=== PATIENT | male | born 1965 | race Caucasian/White ===

== ENCOUNTER → 2016-11-29 | Outpatient (CLI) | payer BC, OTHER ==
--- NOTE | 2016-11-29 21:08 | DIAGNOSTIC IMAGING REPORT ---
MRI OF THE LUMBAR SPINE WITHOUT CONTRAST CLINICAL HISTORY: Lumbar pain. Right thigh numbness and left foot pain. COMPARISON STUDY: No previous studies for comparison. TECHNIQUE: Utilizing a 1.5 Nava magnet and dedicated coil, multiplanar, multiecho imaging of the lumbar spine was performed without IV contrast. FINDINGS: For purposes of numbering on this exam, the L5-S1 disc space is assigned to axial image 21 of 30. There is a transitional vertebra at the lumbosacral junction which is designated as S1 on this exam. This may be partially lumbarized. There is a small disc space at the S1-S2 level. Alignment of lumbar spine is anatomic. Vertebral body heights are maintained. There is no intracanalicular mass or fluid collection. L1-2: The central canal and neural foramen are patent. There is minimal disc bulge. L2-3: There is mild facet arthrosis and ligamentous hypertrophy. The central canal and neural foramen are patent. L3-4: There is mild facet arthrosis and ligamentous hypertrophy. The central canal is patent. There is minimal narrowing of the neural foramen. L4-5: There is moderate facet arthrosis. There is minimal disc bulge. The central canal are patent. There is minimal narrowing of the neural foramen. L5-S1: There is a central annular tear with tiny central disc protrusion. There is mild facet arthrosis. The central canal is patent. There is mild to moderate narrowing of both neural foramen. IMPRESSION: 1. Mild multilevel degenerative disc disease and facet arthritis of the lumbar spine. No central canal stenosis. Mild to moderate bilateral neural foraminal stenosis at L5-S1. 2. Transitional vertebra at the lumbosacral junction which is designated as S1 on this exam. Please see above numbering scheme of the lumbar spine. Electronically signed by: Hakan Choudhary M.D. 11/29/2016 9:06 PM Dictated Date/Time: 11/29/2016 5:10 PM
== END | disposition home or self-care (01) ==
LOC: C.MRI 15:09
PROVIDERS: ATTEND Orthopaedic Surgery Orthopaedic Surgery of the Spine
DX: M54.5 Low back pain (principal)

== ENCOUNTER 2025-07-15 14:57 | Inpatient (IN) ==
--- NOTE | 2025-07-15 15:31 | Emergency Department Note ---
ED Provider Note History of Present Illness Chief Complaint: Shortness of Breath/Dyspnea Stated Complaint: PNEUMONIA, SOB Time Seen by Provider: 07/15/25 15:15 59-year-old male who presents to the emergency department with his mother (who also provides history) for evaluation of progressively worsening shortness of breath with exertion and productive cough. The patient reports that he was seen in our emergency department a few weeks ago with a diagnosis of pneumonia. He was provided a prescription for a Z-Khanh with improvement of symptoms. The patient reports that he was out chopping wood over the weekend and felt great. On Monday, he reported feeling somewhat short of breath. By yesterday, he reports that he could not walk more than 10-15 steps without stopping because of shortness of breath. He reports that his symptoms worsened overnight and this morning. He was seen by his PCP, and referred to the emergency department for further workup. The patient denies any prior history of pulmonary issues. 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 The patient denies any leia chest pain, nausea or diaphoresis. He currently denies any additional pain other than pain between the shoulder blades. Home Medications Medication Instructions Recorded Confirmed Type chlorthalidone 25 mg tablet 12.5 mg PO QAM 11/09/20 07/15/25 History simvastatin 20 mg tablet 20 mg PO Q OTHER DAY 11/09/20 07/15/25 History valsartan 320 mg tablet 320 mg PO QAM 11/09/20 07/15/25 History levothyroxine 125 mcg tablet 125 mcg PO DAILYBB 06/29/25 07/15/25 History aspirin 81 mg tablet,delayed 81 mg PO QAM 07/15/25 07/15/25 History release carvedilol 12.5 mg tablet 12.5 mg PO BID 07/15/25 07/15/25 History Allergies Allergy/AdvReac Type Severity Reaction Status Date / Time No Known Allergies Allergy Unverified 07/15/25 18:55 Past Med/Surg History Problem List (Updated 07/15/25 @ 17:15 by Jerome Medley) History of pneumonia (Acute) Right ventricular hypertrophy (Acute) Bilateral pulmonary embolism (Acute) COVID-19 (Acute) Medical History (Updated 07/15/25 @ 17:15 by Jerome Medley) Hypertension Surgical History (Updated 07/15/25 @ 15:29 by Jerome Medley) No significant past surgical history Social History (Updated 07/15/25 @ 15:29 by Jerome Medley) Smoking Status: Never smoker Hx Alcohol Use: Yes Alcohol type: beer Hx Substance Use: No Preferred Language: [place] [employer] Required: No Beliefs That Will Affect Care: None marital status: Current Living Situation: Spouse current occupational status: employed Feels Safe at Home: Yes Safety Concerns: Feels Safe At This Time Physical Exam Vital Signs Vital Signs - 24 hr 07/15/25 15:11 07/15/25 15:32 07/15/25 15:49 Temperature 36.6 C Temperature Source Temporal Artery Scan Pulse Rate 100 H Pulse Rate [Apical] Respiratory Rate 20 Respiratory Effort / Characteristics Non-Labored Spontaneous Spontaneous SOB on Exertion Respiratory Depth Normal Respiratory Pattern Regular Blood Pressure 132/89 Blood Pressure [Right Arm] Blood Pressure Mean 103 Blood Pressure Mean [Right Arm] Blood Pressure Position Semi-fowlers Pulse Oximetry 96 94 Oxygen Delivery Method Room Air Room Air Room Air Sepsis Recent Fever Within 48 Hours No Sepsis New/Unexplained Change in Mental Status N/A Sepsis Action Taken by Nursing No Action Required 07/15/25 15:49 07/15/25 15:49 07/15/25 16:41 Temperature Temperature Source Pulse Rate 97 H 93 H Pulse Rate [Apical] 97 H Respiratory Rate 20 20 Respiratory Effort / Characteristics Spontaneous Respiratory Depth Respiratory Pattern Blood Pressure Blood Pressure [Right Arm] 126/105 H Blood Pressure Mean Blood Pressure Mean [Right Arm] 112 Blood Pressure Position Pulse Oximetry 94 94 Oxygen Delivery Method Room Air Room Air Sepsis Recent Fever Within 48 Hours Sepsis New/Unexplained Change in Mental Status Sepsis Action Taken by Nursing 07/15/25 17:00 Temperature Temperature Source Pulse Rate Pulse Rate [Apical] 95 H Respiratory Rate 20 Respiratory Effort / Characteristics Non-Labored Spontaneous Respiratory Depth Respiratory Pattern Blood Pressure Blood Pressure [Right Arm] 116/88 Blood Pressure Mean Blood Pressure Mean [Right Arm] 97 Blood Pressure Position Pulse Oximetry 94 Oxygen Delivery Method Room Air Sepsis Recent Fever Within 48 Hours Sepsis New/Unexplained Change in Mental Status Sepsis Action Taken by Nursing CONSTITUTIONAL: Morbidly obese male who appears in mild discomfort. He is able to speak in full sentences. HEENT: No scleral icterus or conjunctival injection/pallor. NECK: Full active range of motion without discomfort. No JVD or carotid bruits appreciated. RESPIRATORY: Clear to auscultation bilaterally with no wheezing, crackles, rhonchi or stridor. CARDIOVASCULAR: Regular rate and rhythm with no murmurs, rubs or gallops. GASTROINTESTINAL: Bowel sounds present in all quadrants. Abdomen is protuberant but soft and nontender to palpation. No bruits on auscultation. MUSCULOSKELETAL: Full range of motion of all joints without discomfort. INTEGUMENTARY: No rash or other significant dermatologic conditions noted. HEMATOLOGIC: No ecchymosis or petechiae. PSYCHIATRIC: Positive affect. NEUROLOGIC: No focal neurologic deficits noted. Course Course Patient history and physical exam were performed. Nursing notes were reviewed. Vital signs were reviewed from triage, showing a heart rate of 100, however heart rate was 96 bpm on my examination. An ECG was also performed prior to my exam, showing a sinus tachycardia of 104 bpm with occasional PVCs, and Mezvn-Iemikcmwx-Oolbo pattern (with prior history of the same). IV access was established, and labs were ordered and drawn. I-STAT labs were ordered with a normal creatinine. Further review of labs shows a bump to troponin and BNP, otherwise remaining labs were grossly normal. Chest CT angiography was performed, showing moderate amount of bilateral pulmonary emboli with right heart strain. The case was discussed with Dr. Dwyer, ED attending physician, who recommended administering aspirin, initiating weight-based IV heparin with bolus, and hospitalist consultation. Heparin was ordered. Findings were also discussed with the patient, who agreed with admission. I then discussed the case with our Case director of primary care, as well as [facility] Please see their dictation for further treatment and final disposition. Administered Medications Heparin Sodium/Dextrose (Heparin 40584 Unit/500 Ml D5w) 25,000 units in 500 mls @ 36 mls/hr IV .[id number] [facility]; Protocol Stop: 08/14/25 17:29 Last Admin: 07/15/25 17:50 Dose: 1,800 units/hr, 36 mls/hr Documented By: INNA Co-signed By: STEPHEN Discontinued Medications Aspirin (Aspirin 81 Mg Chew) 324 mg PO NOW STA Stop: 07/15/25 16:33 Last Admin: 07/15/25 16:41 Dose: 324 mg Documented By: INNA Heparin Sodium (Porcine) (Heparin Sod (Porcine) 1000 Unit/Ml) 1 units IV NOW ONE Stop: 07/15/25 17:18 Last Admin: 07/15/25 17:48 Dose: 6,500 units Documented By: INNA Co-signed By: STEPHEN Heparin Sodium/Dextrose (Heparin Iv Adult Wt-Based Standard W/ Initial Bolus Protocol) 1 each IV NOW STA; Protocol Stop: 07/15/25 17:02 Last Admin: 07/15/25 17:54 Dose: 1 each Documented By: INNA Ioversol (Optiray 320 125ml) 117 ml IV ONCE ONE Stop: 07/15/25 16:36 Last Admin: 07/15/25 16:35 Dose: 117 ml Documented By: ANNE MARIE Medical Decision Making Medical Records Attestation: I reviewed the patient's medical records. Home Medications was personally reviewed by me Laboratory Data Attestation: I reviewed the patient's lab results. 07/15/25 20:55 07/15/25 20:55 Lab Results 07/15/25 07/15/25 07/15/25 Range/Units 15:40 15:41 15:44 WBC 9.30 (4.8-10.8) K/ul RBC 4.82 (4.70-6.10) M/uL Hgb 14.5 (14.0-18.0) g/dl POC Hgb 15.0 (14.0-18.0) g/dl Hct 43.5 (42.0-52.0) % POC Hct 44 (42-52) % MCV 90.2 (80.0-100.0) fL MCH 30.1 (25.0-34.0) pg MCHC 33.3 (32.0-36.0) g/dL RDW Std Deviation 44.3 (36.4-46.3) fL RDW Coeff of Traci 13.4 (11.5-14.5) % Plt Count 287 (130-400) K/uL MPV 10.2 (9.4-12.4) fL Immature Gran % (Auto) 0.5 % Neut % (Auto) 65.4 % Lymph % (Auto) 23.8 % [place] % (Auto) 6.7 % Eos % (Auto) 2.4 % Baso % (Auto) 1.2 % Neut # (Auto) 6.09 (1.40-6.50) K/uL Lymph # (Auto) 2.21 (1.20-3.40) K/uL [place] # (Auto) 0.62 H (0.11-0.59) K/uL Eos # (Auto) 0.22 (0.00-0.50) K/uL Baso # (Auto) 0.11 (0.00-0.20) K/uL Immature Gran # (Auto) 0.05 (0.01-0.20) K/uL PT 11.4 (9.0-12.0) Seconds INR 1.1 (0.9-1.1) APTT 24 (21-31) Seconds PTT Ratio 0.9 POC Sodium 141 (135-144) mmol/L Sodium 138 (136-145) mmol/L POC Potassium 3.5 (3.3-5.0) mmol/L Potassium 3.5 (3.5-5.1) mmol/L POC Chloride 104 (101-112) mmol/L Chloride 105 (98-107) mmol/L Carbon Dioxide 23 (21-32) mmol/L POC Total CO2 20 L (24-31) mmol/L Anion Gap 10 (3-11) POC Anion Gap 22.0 (16-25) mmol/L POC BUN 15 (7-18) mg/dl BUN 16 (6-23) mg/dl Creatinine 0.86 (0.6-1.4) mg/dl POC Creatinine 0.8 (0.6-1.3) mg/dl Est Cr Clr Drug Dosing 131.5 ml/min eGFR 99.74 BUN/Creatinine Ratio 18.6 (10-20) Glucose 150 H (70-99(Fasting)) mg/dl POC Glucose (other) 152 H (70-99) mg/dl Calcium 9.4 (8.6-10.3) mg/dl POC Ioniz Calcium Carson 1.16 (1.12-1.32) mmol/l Magnesium 1.9 (1.7-2.4) mg/dl Total Bilirubin 0.5 (0.2-1.0) mg/dl AST 13 (13-39) U/L ALT 20 (7-52) U/L Alkaline Phosphatase 90 (34-104) U/L Troponin I High Sens 178.1 H* (0-20) pg/ml B-Natriuretic Peptide 297 H (0-100) pg/ml Total Protein 7.5 (6.0-8.3) gm/dl Albumin 3.9 (3.4-5.0) gm/dl Globulin 3.6 (2.5-4.0) gm/dl Albumin/Globulin Ratio 1.1 (0.9-2) TSH 2.044 (0.300-4.500) uIu/ml Adenovirus (PCR) Not Detected (NotDetected) B. pertussis DNA (PCR) Not Detected (NotDetected) B.parapertussis DNA PCR Not Detected (NotDetected) C. pneumoniae DNA (PCR) Not Detected (NotDetected) Coronavirus OC43 (PCR) Not Detected (NotDetected) Coronavirus HKU1 (PCR) Not Detected (NotDetected) Coronavirus 229E (PCR) Not Detected (NotDetected) SARS-CoV-2 (PCR) Not Detected (NotDetected) Coronavirus NL63 (PCR) Not Detected (NotDetected) Human Metapneumovir PCR Not Detected (NotDetected) Influenza Type A (PCR) Not Detected (NotDetected) Influenza Type B (PCR) Not Detected (NotDetected) M. pneumoniae (PCR) Not Detected (NotDetected) Parainfluenza 1 (PCR) Not Detected (NotDetected) Parainfluenza 2 (PCR) Not Detected (NotDetected) Parainfluenza 3 (PCR) Not Detected (NotDetected) Parainfluenza 4 (PCR) Not Detected (NotDetected) RSV (PCR) Not Detected (NotDetected) Entero/Rhino (PCR) Not Detected (NotDetected) 07/15/25 Range/Units 17:25 WBC (4.8-10.8) K/ul RBC (4.70-6.10) M/uL Hgb (14.0-18.0) g/dl POC Hgb (14.0-18.0) g/dl Hct (42.0-52.0) % POC Hct (42-52) % MCV (80.0-100.0) fL MCH (25.0-34.0) pg MCHC (32.0-36.0) g/dL RDW Std Deviation (36.4-46.3) fL RDW Coeff of Traci (11.5-14.5) % Plt Count (130-400) K/uL MPV (9.4-12.4) fL Immature Gran % (Auto) % Neut % (Auto) % Lymph % (Auto) % [place] % (Auto) % Eos % (Auto) % Baso % (Auto) % Neut # (Auto) (1.40-6.50) K/uL Lymph # (Auto) (1.20-3.40) K/uL [place] # (Auto) (0.11-0.59) K/uL Eos # (Auto) (0.00-0.50) K/uL Baso # (Auto) (0.00-0.20) K/uL Immature Gran # (Auto) (0.01-0.20) K/uL PT (9.0-12.0) Seconds INR (0.9-1.1) APTT (21-31) Seconds PTT Ratio POC Sodium (135-144) mmol/L Sodium (136-145) mmol/L POC Potassium (3.3-5.0) mmol/L Potassium (3.5-5.1) mmol/L POC Chloride (101-112) mmol/L Chloride (98-107) mmol/L Carbon Dioxide (21-32) mmol/L POC Total CO2 (24-31) mmol/L Anion Gap (3-11) POC Anion Gap (16-25) mmol/L POC BUN (7-18) mg/dl BUN (6-23) mg/dl Creatinine (0.6-1.4) mg/dl POC Creatinine (0.6-1.3) mg/dl Est Cr Clr Drug Dosing ml/min eGFR BUN/Creatinine Ratio (10-20) Glucose (70-99(Fasting)) mg/dl POC Glucose (other) (70-99) mg/dl Calcium (8.6-10.3) mg/dl POC Ioniz Calcium Carson (1.12-1.32) mmol/l Magnesium (1.7-2.4) mg/dl Total Bilirubin (0.2-1.0) mg/dl AST (13-39) U/L ALT (7-52) U/L Alkaline Phosphatase (34-104) U/L Troponin I High Sens 185.3 H* (0-20) pg/ml B-Natriuretic Peptide (0-100) pg/ml Total Protein (6.0-8.3) gm/dl Albumin (3.4-5.0) gm/dl Globulin (2.5-4.0) gm/dl Albumin/Globulin Ratio (0.9-2) TSH (0.300-4.500) uIu/ml Adenovirus (PCR) (NotDetected) B. pertussis DNA (PCR) (NotDetected) B.parapertussis DNA PCR (NotDetected) C. pneumoniae DNA (PCR) (NotDetected) Coronavirus OC43 (PCR) (NotDetected) Coronavirus HKU1 (PCR) (NotDetected) Coronavirus 229E (PCR) (NotDetected) SARS-CoV-2 (PCR) (NotDetected) Coronavirus NL63 (PCR) (NotDetected) Human Metapneumovir PCR (NotDetected) Influenza Type A (PCR) (NotDetected) Influenza Type B (PCR) (NotDetected) M. pneumoniae (PCR) (NotDetected) Parainfluenza 1 (PCR) (NotDetected) Parainfluenza 2 (PCR) (NotDetected) Parainfluenza 3 (PCR) (NotDetected) Parainfluenza 4 (PCR) (NotDetected) RSV (PCR) (NotDetected) Entero/Rhino (PCR) (NotDetected) Imaging Data Attestation: I personally reviewed and interpreted this imaging study as follows: My Impression: My interpretation of chest CT angiography shows bilateral pulmonary emboli with right heart strain. No additional pleural effusions or pneumothorax appreciated. Radiologist report was also reviewed with concurrence. I was also contacted by radiologist regarding CT findings. Radiologist's Impression: Chest CTA 07/15/25 15:24 Clinical history: Dyspnea on exertion Technique: Axial computed tomography images were obtained of the chest after the administration of intravenous contrast according to the CT angiogram protocol Comparison is made to the prior CT dated 06/29/2025 Findings: There is new pulmonary embolism in the distal aspect of the right pulmonary artery and within multiple lobar, segmental, and subsegmental pulmonary artery branches bilaterally There are unchanged 2-3 mm right upper lobe and right upper lobe nodules. There is an unchanged 3 minimal lingular nodule. There is an unchanged 6 mm right upper lobe nodule. There is subsegmental atelectasis in both lower lobes. There is no pleural effusion or pneumothorax. There is no sign of pulmonary fibrosis or other diffuse interstitial process. No endobronchial lesion is seen There is no mediastinal, hilar, or axillary adenopathy. The thoracic aorta appears unremarkable with no sign of aneurysm or dissection. There is no pericardial effusion. There is right ventricular dilatation There is fatty infiltration of the liver. No fracture is seen. No focal osseous lesion is evident Impression: 1. Moderate amount of pulmonary embolism bilaterally 2. Right ventricular dilatation, concerning for right heart strain secondary to the pulmonary embolism 3. Unchanged pulmonary nodules, likely benign but indeterminate in nature. A follow-up chest CT is recommended in 6 months to ensure continued stability 4. Fatty infiltration of the liver ACT 112: Positive. There are findings on this exam that require communication between the performing entity and the patient following Patient Test Result Information Act ([place] ACT 112) guidelines. Electronically signed by Sanjeev Marrero 07-15-2025 4:58 PM ECG Data Attestation: I personally reviewed and interpreted this ECG as follows: Indication: + SOB/dyspnea Rate (beats per minute): 104 Rhythm: + normal sinus ECG Intervals/blocks: + Normal QRS, + Normal QT and + Normal [place] ECG Remer: + Normal ECG ST segments: + Normal ST segments and + T-wave inversions (Lead I, aVL) ECG Findings: + PVCs Comparison ECG Date: from (06/29/2025) Change: no significant change Additional Comments: Tjuku-Rkhzjrpyj-Zxmdx pattern noted MDM Narrative Cardiac monitoring: An order was placed for continuous cardiac monitoring. The monitor shows a rate of 104 bpm with a sinus tachycardic rhythm. console assembler history was reviewed throughout the evaluation, and no dysrhythmias were noted. See ED Course section for further details of today's visit. The patient presents with complaint of progressively worsening dyspnea on exertion for the past 4 days. Patient does have significant history of left lower lobe pneumonia 2 weeks ago that was treated with azithromycin, with the patient reporting symptomatic and clinical improvement. The patient did have notable physical activity 5 days ago cutting of firewood without any issues. CT angiography today does show evidence for moderate bilateral pulmonary emboli with right heart strain. Patient does have a bumped troponin and BNP. The patient was treated with weight-based IV heparin with bolus, as well as a full size aspirin. The case was discussed with my attending physician, case management, radiologist and [facility] and further management. Impression Bilateral pulmonary embolism, Right ventricular hypertrophy, History of pneumonia Critical Care Time Critical Care Time: Yes Total Critical Care Time: 40 I have personally spent 40 minutes of critical care time in the direct management of this patient. This includes bedside care, interpretation of diagnostic studies, and testing, discussion with consultants, patient, and family members, and other required patient management activities. This 40 minutes is in excess of all separately billable procedures. Patient did require IV heparin for bilateral pulmonary emboli causing right heart strain. Discharge Plan Visit Data Chief Complaint: Shortness of Breath/Dyspnea Stated Complaint: PNEUMONIA, SOB ED Provider: Aayush Dwyer ED Midlevel Provider: Jerome Medley Discharge Problem: Bilateral pulmonary embolism, Right ventricular hypertrophy, History of pneumonia Patient Disposition: Admitted As Inpatient Condition: Serious Discharge Instructions Interventions: ED Discharge Assessment Last Done: 07/15/25 20:22 ED DC CONDITION Conditon at Discharge Condition at Discharge: Fair
[2025-07-15 15:56] LABS: Hematocrit (blood only) 43.5 % (42.0-52.0); Hemoglobin 14.5 g/dl (14.0-18.0); Immature Granulocytes # (auto) 0.05 K/uL (0.01-0.20); Immature Granulocytes % (auto) 0.5 %; Mean Corpuscular Hemoglobin 30.1 pg (25.0-34.0); Mean Corpuscular Volume 90.2 fL (80.0-100.0); Platelet Count 287 K/uL (130-400); RDW Standard Deviation 44.3 fL (36.4-46.3); Red Blood Count 4.82 M/uL (4.70-6.10); White Blood Count 9.30 K/ul (4.8-10.8)
[2025-07-15 16:12] LABS: Alanine Aminotransferase 20.0 U/L (7-52); Albumin Globulin Ratio 1.1 (0.9-2); Alkaline Phosphatase 90.0 U/L (34-104); Anion Gap 10.0 (3-11); Bilirubin,Total 0.5 mg/dl (0.2-1.0); Blood Urea Nitrogen 16.0 mg/dl (6-23); Calcium 9.4 mg/dl (8.6-10.3); Carbon Dioxide 23.0 mmol/L (21-32); Chloride 105.0 mmol/L (98-107); Creatinine Clr Calc Pharmacy 131.5 ml/min; Globulin 3.6 gm/dl (2.5-4.0); Glucose 150.0 mg/dl (70-99(Fasting)); Magnesium 1.9 mg/dl (1.7-2.4); Potassium 3.5 mmol/L (3.5-5.1); Sodium 138.0 mmol/L (136-145); Total Protein 7.5 gm/dl (6.0-8.3)
[2025-07-15 16:27] LABS: INR 1.1 (0.9-1.1); Partial Thromboplastin Time 24 Seconds (21-31); Prothrombin Time 11.4 Seconds (9.0-12.0)
[2025-07-15 16:28] LABS: Thyroid Stimulating Hormone 2.044 uIu/ml (0.300-4.500)
[2025-07-15] MEDS: OPTIRAY 320 125ml IV ONE (16:35)
[2025-07-15] MEDS: ASPIRIN 81 MG CHEW PO STA (16:41)
[2025-07-15 16:44] LABS: Chlamydia pneumoniae PCR Not Detected (NotDetected); Coronavirus 229E PCR Not Detected (NotDetected); Coronavirus CoV-2 (COVID19)PCR Not Detected (NotDetected); Coronavirus HKU1 PCR Not Detected (NotDetected); Coronavirus NL63 PCR Not Detected (NotDetected); Coronavirus OC43PCR Not Detected (NotDetected); Human Metapneumovirus PCR Not Detected (NotDetected); Parainfluenza Virus 1 PCR Not Detected (NotDetected); Parainfluenza Virus 2 PCR Not Detected (NotDetected); Parainfluenza Virus 3 PCR Not Detected (NotDetected); Parainfluenza Virus 4 PCR Not Detected (NotDetected); Respiratory Syncytial VirusPCR Not Detected (NotDetected); Rhinovirus/Enterovirus PCR Not Detected (NotDetected)
--- NOTE | 2025-07-15 16:58 | CT Scan Report ---
Clinical history: Dyspnea on exertion Technique: Axial computed tomography images were obtained of the chest after the administration of intravenous contrast according to the CT angiogram protocol Comparison is made to the prior CT dated 06/29/2025 Findings: There is new pulmonary embolism in the distal aspect of the right pulmonary artery and within multiple lobar, segmental, and subsegmental pulmonary artery branches bilaterally There are unchanged 2-3 mm right upper lobe and right upper lobe nodules. There is an unchanged 3 minimal lingular nodule. There is an unchanged 6 mm right upper lobe nodule. There is subsegmental atelectasis in both lower lobes. There is no pleural effusion or pneumothorax. There is no sign of pulmonary fibrosis or other diffuse interstitial process. No endobronchial lesion is seen There is no mediastinal, hilar, or axillary adenopathy. The thoracic aorta appears unremarkable with no sign of aneurysm or dissection. There is no pericardial effusion. There is right ventricular dilatation There is fatty infiltration of the liver. No fracture is seen. No focal osseous lesion is evident Impression: 1. Moderate amount of pulmonary embolism bilaterally 2. Right ventricular dilatation, concerning for right heart strain secondary to the pulmonary embolism 3. Unchanged pulmonary nodules, likely benign but indeterminate in nature. A follow-up chest CT is recommended in 6 months to ensure continued stability 4. Fatty infiltration of the liver ACT 112: Positive. There are findings on this exam that require communication between the performing entity and the patient following Patient Test Result Information Act ([place] ACT 112) guidelines. Electronically signed by Sanjeev Marrero 07-15-2025 4:58 PM
[2025-07-15] MEDS: HEPARIN SOD (PORCINE) 1000 UNIT/ML IV ONE (17:48)
[2025-07-15] MEDS: HEPARIN 25000 UNIT/500 ML D5W 25,000 UNITS/500 ML BAG IV SCH (17:50)
--- NOTE | 2025-07-15 17:53 | History & Physical Report ---
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 He felt he returned back to baseline after being treated for the PNA however since this past Monday developed gradually progressive exertional dyspnea. Worked up in ED with impression of bilateral PE and likely right heart strain with D sign and enlarged pulmonary artery notable on CTA on my review of the scan. No saddle emboli noted. VSS and no other notable findings on initial evaluation. Bilateral PE likely provoked from recent hospitalization (inflammatory state, limited mobility, body habitus) Telemetry Heparin drip and transition to oral anticoagulation tomorrow anticipate 3 to 6 month course Trend troponins Echocardiogram Lower extremity duplex Outpatient hypercoagulable workup once treatment completed Hypertension Home medications Hypothyroidism Synthroid Hyperlipidemia Statin DVT prophylaxis Full code Disposition admission to telemetry History of Present Illness Chief Complaint: PE Primary Care Provider: Jono Haji 59M hypertension obesity WPW family history blood clots (uncle), 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 He felt he returned back to baseline after being treated for the PNA however since this past Monday developed gradually progressive exertional dyspnea. Worked up in ED with impression of bilateral PE and likely right heart strain with D sign and enlarged pulmonary artery notable on CTA on my review of the scan. No saddle emboli noted. VSS and no other notable findings on initial evaluation. No pleuritic or other chest pain, orthopnea, hemoptysis, f/c, URI symptoms nausea lightheadedness diaphoresis or any other symptoms. at bedside. No previous history VTE, malignancy, steroid / testosterone therapy, prolonged immobilization, smoking or other known risk factors Awaiting completion of home med rec Allergies Allergy/AdvReac Type Severity Reaction Status Date / Time No Known Allergies Allergy Unverified 11/09/20 11:00 Home Medications Medication Instructions Recorded Confirmed Type carvedilol 6.25 mg tablet 6.25 mg PO QAM 11/09/20 06/29/25 History chlorthalidone 25 mg tablet 12.5 mg PO QAM 11/09/20 06/29/25 History simvastatin 20 mg tablet 20 mg PO Q OTHER DAY 11/09/20 06/29/25 History valsartan 320 mg tablet 320 mg PO QAM 11/09/20 06/29/25 History levothyroxine 125 mcg tablet 125 mcg PO DAILYBB 06/29/25 06/29/25 History amoxicillin 875 mg-potassium 1 tab PO BID #14 tabs 06/30/25 Rx clavulanate 125 mg tablet azithromycin 250 mg tablet 250 mg PO UD #4 tabs 06/30/25 Rx Past Med/Surg History Problem List (Updated 07/15/25 @ 17:15 by Jerome Medley) History of pneumonia (Acute) Right ventricular hypertrophy (Acute) Bilateral pulmonary embolism (Acute) COVID-19 (Acute) Medical History (Updated 07/15/25 @ 17:15 by Jerome Medley) Hypertension Surgical History (Updated 07/15/25 @ 15:29 by Jerome Medley) No significant past surgical history Social History (Updated 07/15/25 @ 15:29 by Jerome Medley) Smoking Status: Never smoker Preferred Language: Icelandic marital status: Current Living Situation: Spouse current occupational status: employed Feels Safe at Home: Yes Review of Systems Review of Systems: negative except as in HPI Results & Data Results & Data Vital Signs (Past 12 Hours) Vital Signs Temp Pulse Pulse Resp BP BP Pulse Ox 07/15/25 17:00 95 H 20 116/88 94 07/15/25 16:41 93 H 07/15/25 15:49 97 H 20 94 07/15/25 15:49 97 H 20 126/105 H 94 07/15/25 15:49 94 07/15/25 15:32 07/15/25 15:11 36.6 C 100 H 20 132/89 96 O2 Del Method 07/15/25 17:00 Room Air 07/15/25 16:41 07/15/25 15:49 Room Air 07/15/25 15:49 Room Air 07/15/25 15:49 Room Air 07/15/25 15:32 Room Air 07/15/25 15:11 Room Air PG Care Time/CCT Total # of Minutes Spent Total Time Spent with Patient: Total time spent is greater than 50% in coordination of care (as documented) at patient's floor/unit and/or counseling patient: Coding Level of Care Code 06462 INT INP/OBS CARE 2/55MIN Diagnoses History of pneumonia Z87.01 Bilateral pulmonary embolism I26.99 Right ventricular hypertrophy I51.7
[2025-07-15] MEDS: Heparin IV Adult Wt-Based Standard w/ INITIAL Bolus Protocol IV STA (17:54)
[2025-07-15] MEDS ORDERED: POLYETHYLENE (MIRALAX) 17 GM PACK PO PRN (20:38)
[2025-07-15] MEDS ORDERED: MoRPHine SULFATE 2 MG/ML CARP IV PRN (20:38)
[2025-07-15] MEDS ORDERED: MAGNESIUM HYDROXIDE SUSP 30 ML UDC PO PRN (20:38)
[2025-07-15] MEDS ORDERED: ONDANSETRON INJ 2 MG/ML 2 ML VIAL IV PRN (20:38)
[2025-07-15] MEDS ORDERED: ACETAMINOPHEN 325 MG TAB PO PRN (20:38)
--- NOTE | 2025-07-15 20:46 | Ultrasound Report ---
Exam(s): US VENOUS BILATERAL LOWER EXTREMITIES EXAM: US Duplex Bilateral Lower Extremities Veins CLINICAL HISTORY: PE. TECHNIQUE: Real-time duplex ultrasound scan of the bilateral lower extremity veins integrating B-mode two-dimensional vascular structure, Doppler spectral analysis, color flow Doppler imaging and compression. COMPARISON: No relevant prior studies available. FINDINGS: Right deep veins: Partially occlusive thrombus noted in the right peroneal vein. There is no proximal/central extension into the right popliteal vein, the right femoral or common femoral veins. Right superficial veins: No thrombus in the saphenofemoral junction. Left deep veins: No DVT in the left common femoral, femoral, proximal deep femoral or popliteal veins. The veins demonstrate normal color flow, are normally compressible, with normal phasic flow and/or augmentation response. The interrogated calf veins are patent. Left superficial veins: No thrombus in the saphenofemoral junction. Soft tissues: No acute findings. No popliteal cyst. IMPRESSION: 1. Partially occlusive thrombus noted in the right peroneal vein. There is no proximal/central extension into the right popliteal vein, the right femoral or common femoral veins. 2. No evidence for deep vein thrombosis involving the left lower extremity. Electronically signed by: Chad Nolen MD 07/15/25 20:45 PM
[2025-07-15 20:51] VITALS: RESP 18
[2025-07-15 21:10] LABS: Hematocrit (blood only) 41.1 % (42.0-52.0); Hemoglobin 14.0 g/dl (14.0-18.0); Immature Granulocytes # (auto) 0.04 K/uL (0.01-0.20); Immature Granulocytes % (auto) 0.4 %; Mean Corpuscular Hemoglobin 30.7 pg (25.0-34.0); Mean Corpuscular Volume 90.1 fL (80.0-100.0); Platelet Count 284 K/uL (130-400); RDW Standard Deviation 44.1 fL (36.4-46.3); Red Blood Count 4.56 M/uL (4.70-6.10); White Blood Count 9.69 K/ul (4.8-10.8)
[2025-07-15 21:29] LABS: Alanine Aminotransferase 18.0 U/L (7-52); Albumin Globulin Ratio 1.1 (0.9-2); Alkaline Phosphatase 88.0 U/L (34-104); Anion Gap 11.0 (3-11); Bilirubin,Total 0.4 mg/dl (0.2-1.0); Blood Urea Nitrogen 16.0 mg/dl (6-23); Calcium 9.2 mg/dl (8.6-10.3); Carbon Dioxide 22.0 mmol/L (21-32); Chloride 106.0 mmol/L (98-107); Creatinine Clr Calc Pharmacy 132.3 ml/min; Globulin 3.5 gm/dl (2.5-4.0); Glucose 99.0 mg/dl (70-99(Fasting)); Potassium 3.6 mmol/L (3.5-5.1); Sodium 139.0 mmol/L (136-145); Total Protein 7.3 gm/dl (6.0-8.3)
[2025-07-16 00:20] LABS: Appearance Urine Clear (Clear); Glucose Urine UA Negative (Negative)
[2025-07-16 00:24] LABS: ANTI-Xa, UFH(UnfractionatedHep 0.36 IU/ml (0.3-0.7)
[2025-07-16 06:59] LABS: Hematocrit (blood only) 42.3 % (42.0-52.0); Hemoglobin 13.8 g/dl (14.0-18.0); Immature Granulocytes # (auto) 0.04 K/uL (0.01-0.20); Immature Granulocytes % (auto) 0.5 %; Mean Corpuscular Hemoglobin 29.9 pg (25.0-34.0); Mean Corpuscular Volume 91.6 fL (80.0-100.0); Platelet Count 256 K/uL (130-400); RDW Standard Deviation 45.7 fL (36.4-46.3); Red Blood Count 4.62 M/uL (4.70-6.10); White Blood Count 8.78 K/ul (4.8-10.8)
[2025-07-16 07:20] LABS: ANTI-Xa, UFH(UnfractionatedHep 0.30 IU/ml (0.3-0.7)
[2025-07-16 07:27] LABS: Alanine Aminotransferase 20.0 U/L (7-52); Alkaline Phosphatase 81.0 U/L (34-104); Anion Gap 8.0 (3-11); Blood Urea Nitrogen 14.0 mg/dl (6-23); Calcium 9.3 mg/dl (8.6-10.3); Carbon Dioxide 25.0 mmol/L (21-32); Chloride 106.0 mmol/L (98-107); Creatinine Clr Calc Pharmacy 130.7 ml/min; Glucose 118.0 mg/dl (70-99(Fasting)); Potassium 3.6 mmol/L (3.5-5.1); Sodium 139.0 mmol/L (136-145)
[2025-07-16 07:39] LABS: Albumin Globulin Ratio 1.2 (0.9-2); Bilirubin,Total 0.5 mg/dl (0.2-1.0); Globulin 3.2 gm/dl (2.5-4.0); Total Protein 6.9 gm/dl (6.0-8.3)
--- NOTE | 2025-07-16 12:29 | Hospitalist Progress Note ---
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 He felt he returned back to baseline after being treated for the PNA however since this past Monday developed gradually progressive exertional dyspnea. Worked up in ED with impression of bilateral PE and likely right heart strain with D sign and enlarged pulmonary artery notable on CTA on my review of the scan. No saddle emboli noted. VSS and no other notable findings on initial evaluation. Bilateral PE likely provoked from recent hospitalization (inflammatory state, limited mobility, body habitus) Telemetry Heparin drip and transition to oral anticoagulation on discharge anticipate 3 to 6 month course TNI's flat Echocardiogram Lower extremity duplex with RLE dvt Outpatient hypercoagulable workup once treatment completed Hypertension Home medications Hypothyroidism Synthroid Hyperlipidemia Statin DVT prophylaxis Full code Disposition home pending echo if no concerning findings Admission and Anticipated Discharge Date Admission Date: July 15, 2025 Subjective Sitting up in the chair. Comfortable. Dyspnea may be a little improved. Ambulating around no issues. Still with a dry cough that he has had for a few weeks. No pleuritic or other chest pain hemoptysis fevers chills nausea or any other symptoms. Really hoping to go home after the echocardiogram. No history of significant bleeding we discussed risk benefits of anticoagulation again, Maintain precautions to avoid falls/trauma, etc. Review of Systems Review of Systems: negative except as in HPI Physical Exam Physical Exam: CONSTITUTIONAL: Morbidly obese male He is able to speak in full sentences. HEENT: No scleral icterus or conjunctival injection/pallor. NECK: Full active range of motion without discomfort. No JVD or carotid bruits appreciated. RESPIRATORY: Clear to auscultation bilaterally with no wheezing, crackles, rhonchi or stridor. CARDIOVASCULAR: Regular rate and rhythm with no murmurs, rubs or gallops. GASTROINTESTINAL: Bowel sounds present in all quadrants. Abdomen is protuberant but soft and nontender to palpation. No bruits on auscultation. MUSCULOSKELETAL: Full range of motion of all joints without discomfort. INTEGUMENTARY: No rash or other significant dermatologic conditions noted. HEMATOLOGIC: No ecchymosis or petechiae. PSYCHIATRIC: Positive affect. NEUROLOGIC: No focal neurologic deficits noted. Results & Data Results & Data Vital Signs (Past 12 Hours) Vital Signs Temp Pulse Pulse Resp BP Pulse Ox O2 Del Method 07/16/25 11:12 36.4 C L 77 18 117/78 92 Room Air 07/16/25 08:00 78 07/16/25 08:00 Room Air 07/16/25 07:52 36.6 C 81 18 127/91 92 Room Air 07/16/25 02:35 36.6 C 82 18 121/80 95 Room Air PG Care Time/CCT Total # of Minutes Spent Total Time Spent with Patient: Total time spent is greater than 50% in coordination of care (as documented) at patient's floor/unit and/or counseling patient: Coding Level of Care Code 81680 SUB INP/OBS CARE 235MIN Diagnoses History of pneumonia Z87.01 Bilateral pulmonary embolism I26.99 Right ventricular hypertrophy I51.7
[2025-07-16] MEDS: APIXABAN 5 MG TABLET PO SCH (15:10)
--- NOTE | 2025-07-16 15:20 | Discharge Summary ---
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 He felt he returned back to baseline after being treated for the PNA however since this past Monday developed gradually progressive exertional dyspnea. Worked up in ED with impression of jamie ateral PE and likely right heart strain with D sign and enlarged pulmonary artery notable on CTA on my review of the scan. No saddle emboli noted. VSS and no other notable findings on initial evaluation. 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 He felt he returned back to baseline after being treated for the PNA however since this past Monday developed gradually progressive exertional dyspnea. Worked up in ED with impression of bilateral PE and likely right heart strain with D sign and enlarged pulmonary artery notable on CTA on my review of the scan. No saddle emboli noted. VSS and no other notable findings on initial evaluation. No pleuritic or other chest pain, orthopnea, hemoptysis, f/c, URI symptoms nausea lightheadedness diaphoresis or any other symptoms. at bedside. No previous history VTE, malignancy, steroid / testosterone therapy, prolonged immobilization, smoking or other known risk factors Awaiting completion of home med rec Discharge Exam CONSTITUTIONAL: Morbidly obese male He is able to speak in full sentences. HEENT: No scleral icterus or conjunctival injection/pallor. NECK: Full active range of motion without discomfort. No JVD or carotid bruits appreciated. RESPIRATORY: Clear to auscultation bilaterally with no wheezing, crackles, rhonchi or stridor. CARDIOVASCULAR: Regular rate and rhythm with no murmurs, rubs or gallops. GASTROINTESTINAL: Bowel sounds present in all quadrants. Abdomen is protuberant but soft and nontender to palpation. No bruits on auscultation. MUSCULOSKELETAL: Full range of motion of all joints without discomfort. INTEGUMENTARY: No rash or other significant dermatologic conditions noted. HEMATOLOGIC: No ecchymosis or petechiae. PSYCHIATRIC: Positive affect. NEUROLOGIC: No focal neurologic deficits noted. Discharge Plan Discharge Items Patient Disposition: Home - Self-Care Reason For Visit: PE Discharge Diagnosis: Pulmonary embolism And DVT Condition on Discharge: Serious Activity: Per Instructions section Activity Comment: Gradually increase activity. Avoid overexertion Non-emergency contact: Primary Care Provider and Oncologist Call non-emergency contact if: you have any medication questions, your symptoms worsen and you have a fever Follow-up/Referrals: Jono Haji [Primary Care Provider] - Diet: Carb Consistent or DM2, Heart Healthy and Low Fat Addtl Attending Provider Instructions: Follow-up with your primary care doctor within a week. Discuss with your primary care doctor whether to continue aspirin while on a blood thinner. it was held on discharge. caution with potentially traumatic situations with fall risk, contact sports, etc. as now on a blood thinner Your Eliquis dosing will be 10 mg orally twice daily x 1 week, then the dose will be dropped down to 5 mg twice daily Pending Studies at Discharge: No Stand-Alone Forms: My [facility], Smoking Cessation Medications and DC Order Prescriptions: New Eliquis 5 mg tablet 10 mg PO Q12H Qty: 60 0RF Rx Instructions: 10 mg p.o. twice daily x 7 days, then 5 mg p.o. twice daily thereafter Continued chlorthalidone 25 mg tablet 12.5 mg PO QAM simvastatin 20 mg tablet 20 mg PO Q OTHER DAY valsartan 320 mg tablet 320 mg PO QAM levothyroxine 125 mcg tablet 125 mcg PO DAILYBB carvedilol 12.5 mg tablet 12.5 mg PO BID Held aspirin 81 mg Tablet,Delayed Release (Dr/Ec) 81 mg PO QAM Hold Instructions: Resume on 07/25/25. Discuss with your primary care doctor whether to continue this medication while on a blood thinner. Admission Data Admit Date/Time: 07/15/25 18:12 Attending Provider: Gabriel Young Admit Provider: Gabriel Young Primary Care Provider: Jono Haji Other Providers: Gabriel Young Hospital Stay Data Consultations 07/15/25 17:21 ED Decision to Admit Stat Diagnostic Imagining Performed 07/15/25 15:24 CT angio chest PE protocol Stat 07/15/25 18:12 US venous duplex leg [US venous doppler LE BI] Stat Pending Results Patient Have Any Pending Studies at Discharge: No Discharge Instructions Given to Patient (Per Discharging Provider) Follow-up with your primary care doctor within a week. Discuss with your primary care doctor whether to continue aspirin while on a blood thinner. it was held on discharge. caution with potentially traumatic situations with fall risk, contact sports, etc. as now on a blood thinner Your Eliquis dosing will be 10 mg orally twice daily x 1 week, then the dose will be dropped down to 5 mg twice daily Total Time Total Time Spent Total Time Spent (In Minutes): 35 Coding Level of Care Code 39078 INP/OBS DISCH >30 MIN Diagnoses History of pneumonia Z87.01 Bilateral pulmonary embolism I26.99 Right ventricular hypertrophy I51.7
--- NOTE | 2025-07-17 00:31 | XCELERA ---
[id number]
[2025-07-17 03:09] VITALS: TEMP 98.2
[2025-07-17 06:21] LABS: Hematocrit (blood only) 41.6 % (42.0-52.0); Hemoglobin 13.9 g/dl (14.0-18.0); Mean Corpuscular Hemoglobin 30.4 pg (25.0-34.0); Mean Corpuscular Volume 91.0 fL (80.0-100.0); Platelet Count 253 K/uL (130-400); RDW Standard Deviation 44.8 fL (36.4-46.3); Red Blood Count 4.57 M/uL (4.70-6.10); White Blood Count 8.30 K/ul (4.8-10.8)
[2025-07-17 06:51] LABS: Alanine Aminotransferase 18 U/L (7-52); Albumin Globulin Ratio 1.1 (0.9-2); Alkaline Phosphatase 76 U/L (34-104); Anion Gap 8 (3-11); Bilirubin,Total 0.5 mg/dl (0.2-1.0); Blood Urea Nitrogen 15 mg/dl (6-23); Calcium 9.2 mg/dl (8.6-10.3); Carbon Dioxide 25 mmol/L (21-32); Chloride 106 mmol/L (98-107); Creatinine Clr Calc Pharmacy 117.2 ml/min; Globulin 3.3 gm/dl (2.5-4.0); Glucose 110 mg/dl (70-99(Fasting)); Sodium 139 mmol/L (136-145); Total Protein 6.9 gm/dl (6.0-8.3)
[2025-07-17 07:12] LABS: ANTI-Xa, UFH(UnfractionatedHep > 1.50 IU/ml (0.3-0.7)
[2025-07-17 07:38] LABS: Potassium 4.0 mmol/L (3.5-5.1)
[2025-07-17 07:54] VITALS: BP 118/87; O2SAT 93
[2025-07-17 11:48] VITALS: PULSE 77
--- NOTE | 2025-07-17 15:27 | Discharge Summary ---
Discharge Summary Date of Service July 17, 2025 Principal Dx & Hospital Course #1 = Principal Diagnosis (1) History of pneumonia: (2) Bilateral pulmonary embolism: (3) Right ventricular hypertrophy: Plan 59M hypertension obesity WPW Hypothyroidism hyperlipidemia family history blood clots (uncle), admission for PNA a few weeks [employer] who presents with gradually progressive dyspnea and productive cough. He felt he returned back to baseline after being treated for the PNA however since this past Monday developed gradually progressive exertional dyspnea. Worked up in ED with impression of bilateral PE and likely right heart strain with D sign and enlarged pulmonary artery notable on CTA on my review of the scan. No saddle emboli noted. VSS and no other notable findings on initial evaluation. To do as outpatient: 1. Repeat CT for pulmonary nodules in approximately 6 months 2. Continue Eliquis. Reassess need for long-term treatment after 3 months. Follow-up with PCP, hematology 3. Repeat echo in 1-3 months Bilateral PE, lower extremity DVT? Provoked versus unprovoked. First episode CTA with bilateral multi lobar PE, Doppler showed partially occlusive right peroneal DVT Possibly provoked from recent flulike illness for which he was seen in the ER, patient clarified that he was not hospitalized or bed ridden at any point Did drive to [employer] recently, this was a less than 2-hour drive. No other prolonged drives, trauma, or provoking factors. No tobacco use. Recommend Eliquis treatment for at least 3 months, and then follow-up with PCP versus hematology to discuss long-term plan. Mr. Gonsalves does prefer to follow with hematology at least once to review his care and long-term plan, and then will likely follow with his PCP thereafter TTE: LVEF 55 to 60%. Abnormal septal motion consistent with RV pressure overload. RV mild to moderately dilated, right mid RV hypokinetic. This was discussed briefly with cardiology, consistent with what can be seen with right heart strain. Annette had slight elevation in troponin markers which downtrended. He has had no chest pain/ischemic symptoms at any point. Suspect due to right heart strain, can repeat echo in several weeks once PEs are treated. Return precautions including any chest pain chest pressure syncope or presyncope were discussed to which he was agreeable. Pulmonary nodules With prior pulmonary nodules on CT. CTA shows6 mm right upper lobe nodule. Likely benign however recommended for repeat CT in approximate 6 months. This was discussed with the patient prior to discharge. No history of tobacco abuse or malignancy, does have secondary smoke exposure Admission HPI Per Admitting Provider 59M hypertension obesity WPW family history blood clots (uncle), admission for PNA a few weeks [employer] who presents with gradually progressive dyspnea and productive cough. He felt he returned back to baseline after being treated for the PNA however since this past Monday developed gradually progressive exertional dyspnea. Worked up in ED with impression of bilateral PE and likely right heart strain with D sign and enlarged pulmonary artery notable on CTA on my review of the scan. No saddle emboli noted. VSS and no other notable findings on initial evaluation. No pleuritic or other chest pain, orthopnea, hemoptysis, f/c, URI symptoms nausea lightheadedness diaphoresis or any other symptoms. at bedside. No previous history VTE, malignancy, steroid / testosterone therapy, prolonged immobilization, smoking or other known risk factors Awaiting completion of home med rec Discharge Exam General: A&Ox3. NAD. Cooperative. HEENT: Atraumatic, normocephalic. Vision and hearing grossly intact. Pupils equal and reactive to light. Pulm: CTAB A&P. -wheezes, -rales, -rhonchi. Symmetrical chest rise. No increase in work of breathing. No respiratory distress. Cardiac: RRR, -mrg. Radial pulses intact and symmetrical. Abdominal: Nontender, nondistended, soft. BS present. Extremities: No lower extremity pitting edema Discharge Plan Discharge Items Patient Disposition: Home - Self-Care Reason For Visit: PE Discharge Diagnosis: Pulmonary embolism And DVT Condition on Discharge: Good Activity: Per Instructions section Activity Comment: Gradually increase activity. Avoid overexertion Non-emergency contact: Primary Care Provider and Oncologist Call non-emergency contact if: you have any medication questions, your symptoms worsen and you have a fever Follow-up/Referrals: Benny Calvo MD [Physician] - (right heart strain followup) Jono Haji [Primary Care Provider] - 07/24/25 1:00 pm (Primary Care hospital follow up scheduled on 07/24/25 at 1:00 at [facility] location) June Bowden MD [Physician] - (DVT/PE followup, pt prefers to follow with Heme rather than PCP for fdc recs) Diet: Carb Consistent or DM2, Heart Healthy and Low Fat Ambulatory Orders: Hematology Amb Referral (Urgent) Timeframe: 6 Weeks Location: None Selected Ordered By: Bam Mars Oncology Amb Referral (Urgent) Timeframe: 1 Month Location: None Selected Ordered By: Bam Gibbs Attending Provider Instructions: Follow-up with your primary care doctor within a week. Discuss with your primary care doctor whether to continue aspirin long-term while on a blood thinner. This can reduce your risk of heart attack and stroke events however also increases your risk of bleeding while on Eliquis. Please take caution as you are more likely to have increased bleeding with any injuries while on a blood thinner. For any small wounds apply firm direct pressure for 10 minutes before checking the wound. For any moderate or larger wound, bleeding that does not stop, or if you are concerned please seek immediate medical reattention. You should take Eliquis 10 mg by mouth twice daily for 1 week, then 5 mg by mouth twice daily thereafter. He will need to be on Eliquis for at least 3 months, to help make long-term decisions regarding whether you should stop the blood thinner at that point versus have additional follow-up A-fib appointment with hematology has been made for you. Your echocardiogram showed some dilation consistent with right heart strain from your pulmonary emboli. There was a small area of hypokinesis which was discussed with cardiology and is likely a result of the blood clots and right heart strain. You should have a repeat echocardiogram in several weeks once your PEs have been treated. You have previously been noted to have some pulmonary nodules which were stable. A less than 7 cm pulmonary right upper lung nodule was noted during admission. This was discussed with you, reimaging is recommended in approximately 6 months. If you develop any new or worsening symptoms including fever, chills, sweats, chest pain, chest pressure, difficulty breathing, uncontrolled nausea/vomiting, rash, wheezing, passing out or nearly passing out, bleeding, black/bloody bowel movements, or other new or concerning symptoms please call your primary care physician, or call 911 for re-evaluation in the emergency department if you are very concerned. Pending Studies at Discharge: No Stand-Alone Forms: My [employer], Smoking Cessation Medications and DC Order Prescriptions: New Eliquis 5 mg tablet 10 mg PO Q12H Qty: 60 0RF Rx Instructions: 10 mg p.o. twice daily x 7 days, then 5 mg p.o. twice daily thereafter Continued chlorthalidone 25 mg tablet 12.5 mg PO QAM simvastatin 20 mg tablet 20 mg PO Q OTHER DAY valsartan 320 mg tablet 320 mg PO QAM levothyroxine 125 mcg tablet 125 mcg PO DAILYBB carvedilol 12.5 mg tablet 12.5 mg PO BID Held aspirin 81 mg Tablet,Delayed Release (Dr/Ec) 81 mg PO QAM Hold Instructions: Resume on 07/25/25. Discuss with your primary care doctor whether to continue this medication while on a blood thinner. Discharge Orders: Discharge Order (Routine); Ordered 07/17/25 Ordered By: Bam Balderas/Other Patient Handouts: Apixaban Oral Tablet, Understanding Deep Vein Thrombosis, DVT Complications, Procedures for Deep Vein Thrombosis, Pulmonary Embolism, Preventing Deep Vein Thrombosis, Pulmonary Embolism Dc Admission Data Admit Date/Time: 07/15/25 18:12 Attending Provider: Bam Mars Admit Provider: Gabriel Young Primary Care Provider: Jono Haji Other Providers: Gabriel Young Other Interventions: Discharge Summary Assessment (RN) Last Done: 07/17/25 11:45 Hospital Stay Data Consultations 07/15/25 17:21 ED Decision to Admit Stat Diagnostic Imagining Performed 07/15/25 15:24 CT angio chest PE protocol Stat 07/15/25 18:12 US venous duplex leg [US venous doppler LE BI] Stat Pending Results Patient Have Any Pending Studies at Discharge: No Discharge Instructions Given to Patient (Per Discharging Provider) Follow-up with your primary care doctor within a week. Discuss with your primary care doctor whether to continue aspirin long-term while on a blood thinner. This can reduce your risk of heart attack and stroke events however also increases your risk of bleeding while on Eliquis. Please take caution as you are more likely to have increased bleeding with any injuries while on a blood thinner. For any small wounds apply firm direct pressure for 10 minutes before checking the wound. For any moderate or larger wound, bleeding that does not stop, or if you are concerned please seek immediate medical reattention. You should take Eliquis 10 mg by mouth twice daily for 1 week, then 5 mg by mouth twice daily thereafter. He will need to be on Eliquis for at least 3 months, to help make long-term decisions regarding whether you should stop the blood thinner at that point versus have additional follow-up A-fib appointment with hematology has been made for you. Your echocardiogram showed some dilation consistent with right heart strain from your pulmonary emboli. There was a small area of hypokinesis which was discussed with cardiology and is likely a result of the blood clots and right heart strain. You should have a repeat echocardiogram in several weeks once your PEs have been treated. You have previously been noted to have some pulmonary nodules which were stabl e. A less than 7 cm pulmonary right upper lung nodule was noted during admission. This was discussed with you, reimaging is recommended in approximately 6 months. If you develop any new or worsening symptoms including fever, chills, sweats, chest pain, chest pressure, difficulty breathing, uncontrolled nausea/vomiting, rash, wheezing, passing out or nearly passing out, bleeding, black/bloody bowel movements, or other new or concerning symptoms please call your primary care physician, or call 911 for re-evaluation in the emergency department if you are very concerned. Total Time Total Time Spent Total Time Spent (In Minutes): Time spend day of discharge 60 minutes including direct patient care, documentation, review of labs and images, and coordination of care. Coding Level of Care Code 66664 INP/OBS DISCH >30 MIN Diagnoses History of pneumonia Z87.01 Bilateral pulmonary embolism I26.99 Right ventricular hypertrophy I51.7
--- NOTE | 2025-07-18 06:51 | Electrocardiogram Report ---
Test Reason : Blood Pressure : */* mmHG Vent. Rate : 104 BPM Atrial Rate : 104 BPM P-R Int : 142 ms QRS Dur : 106 ms QT Int : 378 ms P-R-T Axes : 44 -13 136 degrees QTcB Int : 497 ms Sinus tachycardia with occasional Premature ventricular complexes [id number] Abnormal ECG When compared with ECG of 29-Jun-2025 21:33, Premature ventricular complexes are now Present Confirmed by Kenrick Saeed ([id number]) on 07/18/2025 6:51:24 AM Referred By: REFERRED SELF Confirmed By: Kenrick Saeed
--- NOTE | 2025-07-18 06:52 | Electrocardiogram Report ---
Test Reason : Blood Pressure : */* mmHG Vent. Rate : 86 BPM Atrial Rate : 86 BPM P-R Int : 142 ms QRS Dur : 114 ms QT Int : 432 ms P-R-T Axes : 44 -22 119 degrees QTcB Int : 516 ms Normal sinus rhythm [id number] Left ventricular hypertrophy with repolarization abnormality Abnormal ECG When compared with ECG of 15-Jul-2025 15:19, Premature ventricular complexes are no longer Present Confirmed by Kenrick Saeed ([id number]) on 07/18/2025 6:51:54 AM Referred By: REFERRED SELF Confirmed By: Kenrick Saeed
== END 2025-07-17 11:45 | disposition home or self-care (01) | DRG 299 ==
LOC: ED 14:57 → SUATTDRO 18:12 → 2S 18:12